=== PATIENT | male | born 1980 | race Caucasian/White ===

== ENCOUNTER 2020-09-26 06:09 | Emergency (ER) | payer MEDICAID ==
[~2020-09-26] VITALS: Ht 180.3 cm; Wt 92.5 kg
[2020-09-26 06:20] VITALS: BP_SYST 159
--- NOTE | 2020-09-26 06:25 | NUR ---
Placed in room 3 . Placed on cardiac nurse, blood pressure machine and pulse oximeter. To gown for exam. Side rails up. Report given to RENARD STODDARD.
--- NOTE | 2020-09-26 06:44 | NUR ---
ER at bedside examining patient.
[2020-09-26] MEDS ORDERED: HYDR25TA4 PO (06:50)
[2020-09-26] MEDS ORDERED: CEPH500C2 PO (06:50)
[2020-09-26] MEDS ORDERED: PROM118S PO (06:57)
[2020-09-26 07:05] VITALS: BP_SYST 142
--- NOTE | 2020-09-26 07:05 | NUR ---
Patient given written and verbal discharge instructions and verbalizes understanding. ER MD discussed with patient the results and treatment provided. Patient in stable condition. ID arm band removed. Rx of CEPHALEXIN AND HCTZ given. Patient educated on pain management and to follow up with PMD. Pain Scale 0/10. Opportunity for questions provided and answered. Medication side effect fact sheet provided.
== END 2020-09-26 07:05 | disposition home or self-care (01) ==
LOC: SED 06:09
DX: L03.012 Cellulitis of left finger (principal); I16.0 Hypertensive urgency; Z79.899 Other long term (current) drug therapy
CPT/HCPCS: 99283